=== PATIENT | female | born 1955 | race Caucasian/White ===

== ENCOUNTER → 2020-07-03 | Day surgery (SDC) | payer MEDICARE, BC ==
[~2020-07-03] MED LIST: Midazolam 1 MG/ML 2 ML SDV ONE; Propofol 200 MG/20 ML SDV ONE; Sodium Chloride 0.9% 1,000 ML IV SCH; fentaNYL 100 MCG/2 ML SDV ONE
--- NOTE | 2020-07-03 14:31 | OR ---
DATE OF PROCEDURE: 07/03/2020 SURGEON: Bruno Kennedy MD PROCEDURE: Colonoscopy. FINDINGS: Normal colonoscopy. COMPLICATIONS: None. BOILER WATER TESTER: None. ANESTHESIA: MAC. PREOPERATIVE DIAGNOSIS: Screening colonoscopy. POSTOPERATIVE DIAGNOSIS: Screening colonoscopy. RISKS: Risks, benefits, alternatives, and limitations including, but not limited to, infection, bleeding, and perforation were explained and patient wished to proceed. We discussed false positives and false negatives and the limits of this procedure. PROCEDURE IN DETAIL: The patient was placed in left lateral decubitus position. Digital rectal exam was performed without abnormality. Scope was introduced and advanced atraumatically to the ileocecal valve. A photo was taken. The scope was brought back through the ascending, transverse, descending colon, and retroflexed. The prep was moderately acceptable. No evidence of old or new blood. No masses, no polyps, no abnormalities on retroflex. The patient tolerated procedure well. Greater than 8 minutes were used removing the scope. Bruno Kennedy MD /[id number]
== END ==
LOC: JP.SDS 09:47
PROVIDERS: ATTEND Surgery
DX: Z12.11 Encounter for screening for malignant neoplasm of colon (principal); F17.200 Nicotine dependence, unspecified, uncomplicated; Z91.041 Radiographic dye allergy status
CPT/HCPCS: G0121; J2250; J2704; J3010; J7030

== ENCOUNTER 2023-07-17 06:10 | Observation (INO) | payer MEDICARE, BC ==
[2023-07-17] MEDS ORDERED: Bupivacaine 0.5%/EPINEPHrine 1:200,000 50 ML MDV ONE (06:40)
[2023-07-17 06:42] LABS: HEMATOCRIT 42.9 % (34.3-46.0); HEMOGLOBIN 14.8 g/dL (11.2-15.5); MEAN CORPUSCULAR HEMOGLOBIN 31.1 pg (31.6-35.5); MEAN CORPUSCULAR HGB CONC 34.5 g/dL (31.6-35.5); MEAN CORPUSCULAR VOLUME 90.1 fL (81.4-99.0); RED BLOOD CELL COUNT 4.76 M/uL (3.77-5.24); WHITE BLOOD CELL COUNT,WBC 7.9 K/uL (3.2-11.0)
[2023-07-17 07:02] LABS: A/G RATIO 1.1 (1.2-2.2); ALANINE AMINOTRANSFERASE,ALT 30 U/L (12-78); ALBUMIN 3.7 g/dL (3.4-5.0); ALKALINE PHOSPHATASE 106 U/L (46-116); ANION GAP 9.4 mmol/L (5.0-14.0); ASPARTATE AMNIOTRANSFERASE,AST 17 U/L (15-37); BILIRUBIN TOTAL 0.6 mg/dL (0.2-1.0); BLOOD UREA NITROGEN,BUN 13 mg/dL (7-18); CALCIUM 8.7 mg/dL (8.5-10.1); CARBON DIOXIDE,CO2 30 mmol/L (21-32); CHLORIDE,CL 101 mmol/L (100-108); ESTIMATED GFR 61 mL/min (>60); GLUCOSE RANDOM 145 mg/dL (74-106); POTASSIUM,K 4.2 mmol/L (3.6-5.2); PROTEIN TOTAL,TP 7.2 g/dL (6.4-8.2); SODIUM,NA 140 mmol/L (140-148)
[2023-07-17] MEDS ORDERED: ceFAZolin 2 GM in Premix Bag 1 BAG IV ONE (07:30)
[2023-07-17] MEDS ORDERED: ceFAZolin 2 GM in Sodium Chloride 0.9% 50 ML IV ONE (07:30)
[2023-07-17] MEDS ORDERED: Albuterol/Ipratropium 3.0-0.5 MG/3 ML Neb Soln NEB ONE (07:30)
[2023-07-17] MEDS ORDERED: Sodium Chloride 0.9% 1,000 ML IV SCH ×2 (07:30→14:45)
[2023-07-17] MEDS ORDERED: fentaNYL 250 MCG/5 ML SDV ONE ×2 (07:46→08:34)
[2023-07-17] MEDS ORDERED: Ondansetron 4 MG/2 ML SDV ONE (07:47)
[2023-07-17] MEDS ORDERED: Dexamethasone 4 MG/ML SDV ONE (07:47)
[2023-07-17] MEDS ORDERED: Rocuronium 50 MG/5 ML Vial ONE ×2 (07:47→09:21)
[2023-07-17] MEDS ORDERED: Neostigmine Methylsulfate 1 MG/ML 5 ML Syringe ONE (07:47)
[2023-07-17] MEDS ORDERED: Propofol 200 MG/20 ML SDV ONE (07:47)
[2023-07-17] MEDS ORDERED: Glycopyrrolate 0.2 MG/ML 5 ML MDV ONE (07:47)
[2023-07-17] MEDS ORDERED: Succinylcholine 200 MG/10 ML MDV ONE (07:47)
[2023-07-17] MEDS ORDERED: metroNIDAZOLE/Normal Saline 500 MG in Premix Bag 1 BAG IV ONE (08:00)
[2023-07-17] MEDS ORDERED: Ropivacaine 40 ML, dexAMETHasone 8 MG, EPINEPHrine 0.4 MG, Sodium Chloride 0.9% 37.6 ML NERVRT SCH ×4 (08:15)
[2023-07-17] MEDS ORDERED: Labetalol 20 MG/4 ML Syringe ONE (09:07)
[2023-07-17] MEDS ORDERED: fentaNYL 100 MCG/2 ML SDV ONE (10:04)
[2023-07-17] MEDS ORDERED: Lactated Ringers 1,000 ML ONE (10:15)
[2023-07-17] MEDS ORDERED: Acetaminophen/HYDROcodone 325-5 MG Tab PO PRN (13:08)
[2023-07-17] MEDS ORDERED: Proparacaine 0.5% Ophth Soln 15 ML Bottle EYEBOTH STA (13:50)
[2023-07-17] MEDS: Gentamicin 0.3% Ophth Soln 5 ML Bottle EYELF SCH ×4 (14:07→22:46)
[2023-07-17] MEDS ORDERED: Morphine 2 MG/ML SYRINGE IV PRN (14:43)
[2023-07-17] MEDS ORDERED: Ondansetron 4 MG Tab.DIS PO PRN (14:44)
[2023-07-17] MEDS ORDERED: Ondansetron 4 MG/2 ML SDV IVPUSH PRN (14:44)
[2023-07-17] MEDS ORDERED: Albuterol/Ipratropium 3.0-0.5 MG/3 ML Neb Soln INH PRN (14:45)
[2023-07-17] MEDS ORDERED: Proparacaine 0.5% Ophth Soln 15 ML Bottle EYELF PRN ×2 (15:00→15:30)
[2023-07-17] MEDS: Acetaminophen/HYDROcodone 325-5 MG Tab PO PRN (17:32)
[2023-07-17] MEDS ORDERED: Gentamicin 0.3% Ophth Soln 5 ML Bottle EYELF SCH (18:00)
[2023-07-17] MEDS: Hypromellose 0.3% Ophth Soln 15 ML Bottle EYELF SCH ×3 (20:05→23:08)
[2023-07-17] MEDS ORDERED: Nystatin Topical Powder 15 GM Bottle TOP SCH (21:00)
[2023-07-18] MEDS: Gentamicin 0.3% Ophth Soln 5 ML Bottle EYELF SCH ×5 (00:01→08:17)
[2023-07-18] MEDS: Hypromellose 0.3% Ophth Soln 15 ML Bottle EYELF SCH ×6 (01:08→09:19)
[2023-07-18] MEDS: Acetaminophen/HYDROcodone 325-5 MG Tab PO PRN (06:09)
[2023-07-18] MEDS ORDERED: Ibuprofen 600 MG Tab PO PRN (07:11)
[2023-07-18] MEDS ORDERED: Nystatin Topical Powder 15 GM Bottle TOP SCH (09:00)
== END 2023-07-18 10:38 | disposition home or self-care (01) ==
LOC: JP.SDS 06:10 → JP.MS 14:28
PROVIDERS: ADMIT Surgery; ATTEND Surgery
DX: K43.6 Other and unspecified ventral hernia with obstruction, without gangrene (principal); G89.18 Other acute postprocedural pain; S05.02XA Injury of conjunctiva and corneal abrasion without foreign body, left eye, initial encounter; F17.210 Nicotine dependence, cigarettes, uncomplicated; E66.9 Obesity, unspecified; Z86.718 Personal history of other venous thrombosis and embolism; Z98.890 Other specified postprocedural states
CPT/HCPCS: 36415; 80053; 85027; 94640; A9270-GY; C1713; C1781; J0171; J0330; J0690; J1100; J2405; J2704; J2710; J2795; J3010; J3490; J7030; J7120; J7620